=== PATIENT | male | born 1950 | race Caucasian/White ===

== ENCOUNTER 2019-10-29 08:56 | Emergency (ER) | payer MEDICARE ==
[~2019-10-29] VITALS: Ht 177.8 cm; Wt 84.1 kg
[2019-10-29 08:58] VITALS: BP 141/84
--- NOTE | 2019-10-29 10:12 | NUR ---
Patient/Caregiver given discharge instructions and they have confirmed that they understand the instructions. Patient ambulatory with steady gait.
== END 2019-10-29 10:14 | disposition home or self-care (01) ==
LOC: ED 10:05
DX: L02.512 Cutaneous abscess of left hand (principal)
CPT/HCPCS: 10060; 99283